=== PATIENT | female | born 1995 | race Caucasian/White ===

== ENCOUNTER 2019-01-02 20:09 | Emergency (ER) | payer SELFPAY ==
[~2019-01-02] VITALS: Ht 154.9 cm; Wt 115.2 kg
[2019-01-02 20:16] VITALS: Ht 154.9 cm; Wt 115.2 kg
[2019-01-02 21:11] VITALS: BP 116/91
== END 2019-01-02 21:12 | disposition home or self-care (01) ==
LOC: ED 20:09
DX: H60.93 Unspecified otitis externa, bilateral (principal)